=== PATIENT | female | born 1985 | race Caucasian/White ===

== ENCOUNTER → 2017-08-14 | Outpatient (CLI) | payer MEDICAID ==
[~2017-08-14] MED LIST: CYCL-36 PO; HYDR1CAP30 PO; HYDR25R PR; NAPR-576 PO; ROBA500T PO; SERT25TA83 PO
== END ==
LOC: HPND 12:37
PROVIDERS: ATTEND Obstetrics & Gynecology
DX: O09.212 Supervision of pregnancy with history of pre-term labor, second trimester (principal); Q51.9 Congenital malformation of uterus and cervix, unspecified; O28.5 Abnormal chromosomal and genetic finding on antenatal screening of mother; O34.599 Maternal care for other abnormalities of gravid uterus, unspecified trimester; Z82.79 Family history of other congenital malformations, deformations and chromosomal abnormalities
CPT/HCPCS: 76811